=== PATIENT | female | born 1995 | race Hispanic/Latino ===

== ENCOUNTER → 2016-09-06 | Outpatient (CLI) | payer OTHER | END | disposition home or self-care (01) | LOC: YCFC.O 16:16 | PROVIDERS: ATTEND Nurse Practitioner Family | DX: R50.9 Fever, unspecified (principal) ==

== ENCOUNTER 2017-01-09 20:29 | Emergency (ER) | payer OTHER ==
--- NOTE | 2017-01-09 21:05 | ED.PDOC ---
History of Present Illness - General Chief Complaint: ENT Problem Stated Complaint: Sore throat Time Seen by Provider: 01/09/17 21:05 Source: patient, family Exam Limitations: no limitations - History of Present Illness Initial Comments: Steven lBount 21 y/o female stated that yesterday started having achy throat which got worse today with pain on swallowing took advil but still continue to hurt.Also got light headed on her way home fell and able to get up but her lighteadedness gone. Timing/Duration: this morning Severity: moderate EENT Location: throat Prearrival Treatment: over the counter meds Presenting Symptoms: sore throat Improving Factors: nothing Worsening Factors: nothing Associated Symptoms: sore throat, other - pain on swallowing Allergies/Adverse Reactions: Allergies NO KNOWN ALLERGY Allergy (Verified 12/08/12 08:18) Review of Systems - Review of Systems Constitutional: States: no symptoms reported EENTM: States: throat pain Respiratory: States: no symptoms reported Cardiology: States: no symptoms reported Gastrointestinal/Abdominal: States: no symptoms reported Genitourinary: States: no symptoms reported Musculoskeletal: States: no symptoms reported Skin: States: no symptoms reported Neurological: States: no symptoms reported Endocrine: States: no symptoms reported Hematologic/Lymphatic: States: no symptoms reported Past Medical History (General) - Patient Medical History Hx Stroke: No Hx Cardiac Disorders: No Hx Diabetes: No Surgical History: no surgical history - Vaccination History Hx Tetanus, Diphtheria Vaccination: Yes - Social History Hx Tobacco Use: No Hx Alcohol Use: Yes - Female History Hx Last Menstrual Period: 12/25/16 Patient : No Family Medical History - Family History Grandparents Living Status: Still Living Hx Family Diabetes: Yes Physical Exam - Physical Exam General Appearance: Alert, Comfortable, No apparent distress Eye Exam: bilateral normal Ear Exam: bilateral ear: auricle normal, canal normal, TM normal Nasal Exam: normal inspection Throat Exam: normal mouth inspection, other - pharyngeal erythema Neck: non-tender, full range of motion, supple Cardiovascular/Respiratory: regular rate, rhythm, no M/R/G, normal peripheral pulses, no JVD, normal breath sounds Abdominal Exam: non-tender, no organomegaly Neurologic: no motor/sensory deficits, alert, normal mood/affect, oriented x 3 Skin Exam: normal color, warm/dry Progress - Results/Orders Results/Orders: Vital Signs - 8 hr 01/09/17 01/09/17 21:01 21:45 Temperature 100.5 F H 100.2 F H Pulse Rate [R 93 H 86 Arm] Respiratory 16 20 Rate Blood Pressure 123/92 113/70 [R Arm] O2 Sat by Pulse 97 99 Oximetry 01/09/17 21:09 STREP A SCREEN CULTURE Stat Laboratory Results Group A Strep DNA Negative (NEGATIVE) 01/09/17 21:09 Departure - Departure Clinical Impression: Acute pharyngitis, unspecified Qualifiers: Pharyngitis/tonsillitis etiology: other specified organisms Qualified Code(s): J02.8 - Acute pharyngitis due to other specified organisms Time of Disposition: 21:53 Disposition: Discharge to Home or Self Care Condition: Good Departure Forms: ED Discharge - Pt. Copy, Patient Portal Self Enrollment Instructions: DI for Viral Pharyngitis, Sore Throat Referrals: Fabienne Baird NP [Primary Care Provider] - 1-2 Weeks
[2017-01-09 21:47] VITALS: BP 113/70; TEMP 100.2; O2SAT 99
[2017-01-09] MEDS: predniSONE 10 MG TAB PO ONE (22:00)
== END 2017-01-09 22:05 | disposition home or self-care (01) ==
LOC: ER 20:29
DX: J02.8 Acute pharyngitis due to other specified organisms (principal)
CPT/HCPCS: 87070; 87651; J7512

== ENCOUNTER 2019-05-22 11:25 | Emergency (ER) | payer OTHER ==
[2019-05-22] MEDS ORDERED: LIDOCAINE 1% 10 ML VIAL INJ ONE ×2 (11:46→11:56)
[2019-05-22] MEDS ORDERED: AMOXICILLIN & POT CLAVULANATE 875 MG TAB PO ONE (12:15)
[2019-05-22] MEDS ORDERED: SULFA/TRIMETH 800/160 (DS) TAB 1 EA TAB PO ONE (12:15)
--- NOTE | 2019-05-22 12:17 | ED.PDOC ---
History of Present Illness - General Chief Complaint: Skin/Abrasion/Tear Stated Complaint: boil on perineal area Time Seen by Provider: 05/22/19 11:27 Source: patient Exam Limitations: no limitations - History of Present Illness Initial Comments: the patient is a 23-year-old female presenting to the emergency room with what appears to be an infected left Bartholin's gland cyst. Symptoms started 2 days ago. There is erythema and increased pain. She denies having had an infection there before. She has had a perirectal abscess in the past however. No fevers. Timing/Duration: other - 2 days Severity: moderate Improving Factors: nothing Worsening Factors: nothing Associated Symptoms: denies symptoms Allergies/Adverse Reactions: Allergies NO KNOWN ALLERGY Allergy (Verified 12/08/12 08:18) Home Medications: Ambulatory Orders Amoxicillin & Pot Clavulanate [Augmentin Tab] 875 mg PO BID #14 tab 05/22/19 Loratadine [Claritin] 10 mg PO PRN 05/22/19 Sulfa/Trimeth 800/160 (Ds) Tab [Bactrim DS Tab] 1 ea PO BID #14 tab 05/22/19 Review of Systems - Review of Systems Constitutional: States: no symptoms reported EENTM: States: no symptoms reported Respiratory: States: no symptoms reported Cardiology: States: no symptoms reported Gastrointestinal/Abdominal: States: no symptoms reported Genitourinary: States: see HPI Musculoskeletal: States: no symptoms reported Skin: States: no symptoms reported Neurological: States: no symptoms reported Endocrine: States: no symptoms reported All other Systems: No Change from Baseline Past Medical History (General) - Patient Medical History Hx Stroke: No Hx Cardiac Disorders: No Hx Congestive Heart Failure: No Hx Diabetes: No Hx Cancer: No Hx Hepatitis C: No Surgical History: no surgical history - Vaccination History Hx Tetanus, Diphtheria Vaccination: Yes Hx Influenza Vaccination: No Hx Pneumococcal Vaccination: No - Social History Hx Tobacco Use: Yes Hx Chewing Tobacco Use: No Hx Alcohol Use: Yes Hx Substance Use: No Hx Substance Use Treatment: No Hx Depression: No Hx Physical Abuse: No Hx Emotional Abuse: No Hx Suspected Abuse: No - Female History Hx Last Menstrual Period: 12/25/16 Patient : No Family Medical History - Family History Grandparents Living Status: Still Living Hx Family Diabetes: Yes Physical Exam - Physical Exam General Appearance: Alert, Anxious, No apparent distress Eye Exam: bilateral normal Ears, Nose, Throat: hearing grossly normal, normal pharynx Neck: full range of motion Respiratory: no respiratory distress, no accessory muscle use Cardiovascular/Chest: normal peripheral pulses, no edema Peripheral Pulses: dorsalis pedis,right: 2+, dorsalis pedis,left: 2+ Gastrointestinal/Abdominal: non tender, soft Rectal Exam: deferred, other - obvious left infected Bartholin's gland cyst. 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 Risk and benefits of incision and drainage were explained and the patient did agree to proceed. Area was cleaned with alcohol. 2 cc of lidocaine without epinephrine were used as a local anesthetic. #15 blade scalpel was used to make a 1.5 cm incision. Approximately 2 cc of pus were obtained and a culture was taken. Patient tolerated this well. The patient needs to wash the area with soap and water twice daily. She is going to be placed on Bactrim and Augmentin for 7 days. ER warnings were given for any worsening. If the patient has repeat occurrences of this problem then she may need to have the Bartholin's gland excised by her DIGITAL MEDIA DIRECTOR in the future preferably when infection is not present. [email or web address] [id number] Departure - Departure Clinical Impression: Bartholin's gland infection Disposition: Discharge to Home or Self Care Condition: Fair Departure Forms: ED Discharge - Pt. Copy, Patient Portal Self Enrollment Instructions: DI for Wound Infection Diet: regular diet Activity: increase activity as tolerated Prescriptions: Amoxicillin & Pot Clavulanate [Augmentin Tab] 875 mg PO BID #14 tab Sulfa/Trimeth 800/160 (Ds) Tab [Bactrim DS Tab] 1 ea PO BID #14 tab Home Medications: Ambulatory Orders Amoxicillin & Pot Clavulanate [Augmentin Tab] 875 mg PO BID #14 tab 05/22/19 Loratadine [Claritin] 10 mg PO PRN 05/22/19 Sulfa/Trimeth 800/160 (Ds) Tab [Bactrim DS Tab] 1 ea PO BID #14 tab 05/22/19 Additional Instructions: the patient is a 23-year-old female presenting to emergency room with an infected left Bartholin's gland cyst. Risk and benefits of incision and drainage were explained and the patient did agree to proceed. Area was cleaned with alcohol. 2 cc of lidocaine without epinephrine were used as a local anesthetic. #15 blade scalpel was used to make a 1.5 cm incision. Approximately 2 cc of pus were obtained and a culture was taken. Patient tolerated this well. The patient needs to wash the area with soap and water twice daily. She is going to be placed on Bactrim and Augmentin for 7 days. ER warnings were given for any worsening. If the patient has repeat occurrences of this problem then she may need to have the Bartholin's gland excised by her DIGITAL MEDIA DIRECTOR in the future preferably when infection is not present.
[2019-05-22] MEDS ORDERED: traMADol HCL 50 MG TAB PO ONE (12:40)
[2019-05-22 12:52] VITALS: BP 142/96; TEMP 97.9; O2SAT 99
== END 2019-05-22 12:52 | disposition home or self-care (01) ==
LOC: ER 11:25
DX: N75.0 Cyst of Bartholin's gland (principal); Z87.891 Personal history of nicotine dependence

== ENCOUNTER → 2020-08-09 | Outpatient (CLI) | payer OTHER | LOC: YCFC.O 15:53 | PROVIDERS: ATTEND Nurse Practitioner Family | DX: Z20.828 Contact with and (suspected) exposure to other viral communicable diseases (principal) ==